=== PATIENT | female | born 1945 | race Caucasian/White ===

== ENCOUNTER 2022-05-03 22:25 | Emergency (ER) | payer BC, MEDICARE ==
[2022-05-03] MEDS ORDERED: Sodium Chloride 0.9% 10 ML Syringe FLUSH PRN (22:34)
[2022-05-03 23:04] LABS: ESTIMATED GFR 67 mL/min (>60)
[2022-05-03 23:05] LABS: TROPONIN I HIGH SENSITIVITY < 4.0 pg/mL (<=60.3)
[2022-05-03] MEDS ORDERED: Iopamidol 612 MG/ML 100 ML Bottle IV ONE (23:37)
[2022-05-03] MEDS ORDERED: Sodium Chloride 0.9% 50 ML IV SCH (23:45)
== END 2022-05-04 01:49 | disposition home or self-care (01) ==
LOC: JP.ED 22:25
DX: R10.11 Right upper quadrant pain (principal); R10.12 Left upper quadrant pain; Z88.5 Allergy status to narcotic agent
CPT/HCPCS: 36415; 74177; 80053; 81001; 83605; 83690; 83735; 84484; 85025; 85379; 85610; 85730; 86140; 93005; 99285; J3490; Q9967; 93010; 99284

== ENCOUNTER 2024-12-28 07:25 | Day surgery (SDC) | payer MEDICARE ==
[2024-12-28] MEDS: Lactated Ringers 1,000 ML IV SCH (08:10)
[2024-12-28] MEDS ORDERED: Propofol 200 MG/20 ML SDV ONE ×2 (10:19→10:54)
[2024-12-28] MEDS ORDERED: fentaNYL 50 MCG/ML SDV ONE (10:19)
== END 2024-12-28 12:14 | disposition home or self-care (01) ==
LOC: JP.SDS 07:25
PROVIDERS: ATTEND Surgery
DX: Z12.11 Encounter for screening for malignant neoplasm of colon (principal); K92.2 Gastrointestinal hemorrhage, unspecified; I10 Essential (primary) hypertension; Z88.5 Allergy status to narcotic agent; Z88.8 Allergy status to other drugs, medicaments and biological substances; Z79.899 Other long term (current) drug therapy
CPT/HCPCS: 00811; 45380; J2704; J3010; J7120